=== PATIENT | female | born 1975 | race Caucasian/White ===

== ENCOUNTER 2023-06-05 21:43 | Emergency (ER) | payer OTHER ==
[~2023-06-05] VITALS: Ht 167.6 cm; Wt 64.0 kg
[2023-06-05 21:48] VITALS: BP 120/73; PULSE 88; RESP 18; TEMP 98.8; O2SAT 99
[2023-06-06] MEDS ORDERED: DOCU-138 MT (13:01)
[2023-06-06] MEDS ORDERED: FERR325T6 MT (13:01)
[2023-06-06] MEDS ORDERED: NITR-87 MT (14:24)
== END 2023-06-06 05:26 | disposition left against medical advice (07) ==
LOC: ER 21:43
DX: Z53.21 Procedure and treatment not carried out due to patient leaving prior to being seen by health care provider (principal)
CPT/HCPCS: 81025; 99281

== ENCOUNTER 2023-06-06 10:40 | Emergency (ER) | payer MEDICAID, OTHER ==
[~2023-06-06] VITALS: Ht 157.5 cm; Wt 55.0 kg
[2023-06-06 11:10] VITALS: O2SAT 100
[2023-06-06 12:25] LABS: BASOPHILS % 0.6 % (0.0-2.0); DIFFERENTIAL COMMENT 0; EOSINOPHILS % 1.6 % (0.0-5.0); HEMATOCRIT. 31.9 % (36.0-48.0); HEMOGLOBIN. 10.5 g/dL (12.0-16.0); LYMPHOCYTES % 30.4 % (20.0-50.0); MEAN CORPUSCULAR HEMOGLOBIN 25.6 pg (28.0-32.0); MEAN CORPUSCULAR HGB CONC 32.8 g/dL (31.0-37.0); MEAN PLATELET VOLUME 7.7 fl (7.4-10.4); MONOCYTES % 9.9 % (2.0-8.0); NEUTROPHILS % 57.5 % (40.0-76.0); PLATELET 319 x1000/uL (130-400); RED BLOOD CELL COUNT 4.09 mill/uL (4.2-5.4); RED CELL DISTRIBUTION WIDTH 16.1 % (11.6-14.6); WHITE BLOOD COUNT 5.1 x1000/uL (4.5-11.0)
[2023-06-06 12:48] LABS: CHLORIDE 109 mEq/L (98-107); INDEX HEMOLYSI 1 (1-3); INDEX ICTERIC 1 (1-4); INDEX LIPEMIC 1 (1-3); POTASSIUM 3.4 mEq/L (3.5-5.1); SODIUM 138 mEq/L (136-145)
[2023-06-06 12:55] LABS: ALANINE AMINOTRANSFERASE 17 IU/L (13-61); ALBUMIN 3.4 g/dL (3.4-5.0); ASPARTATE AMINOTRANSFERASE 18 IU/L (15-37); BILIRUBIN TOTAL 0.1 mg/dL (0.1-1.0); CALCIUM 8.6 mg/dL (8.5-10.1); CARBON DIOXIDE 30 mEq/L (21-32); CREATININE 0.6 mg/dL (0.6-1.3); GLUCOSE 104 mg/dL (70-105); PROTEIN TOTAL 8.1 g/dL (6.0-8.3); UREA NITROGEN BLOOD 17 mg/dL (7-21)
[2023-06-06] MEDS ORDERED: DOCU-138 MT (13:01)
[2023-06-06] MEDS ORDERED: FERR325T6 MT (13:01)
[2023-06-06 13:22] VITALS: BP 132/78; PULSE 78; RESP 16; TEMP 97.1
[2023-06-06 13:24] LABS: COLOR URINE BLOODY (YELLOW)
[2023-06-06 13:25] LABS: CLARITY URINE TURBID (CLEAR); GLUCOSE URINE TRACE (NEGATIVE); PH URINE 6.5 (4.5-8.0); PROTEIN URINE 3+ (NEGATIVE)
[2023-06-06 13:26] LABS: KETONES URINE 1+ (NEGATIVE); LEUKOCYTE ESTERASE URINE 2+ (NEGATIVE); NITRITE URINE POSITIVE (NEGATIVE); OCCULT BLOOD URINE 3+ (NEGATIVE); UROBILINOGEN URINE >8.0 E.U./dL (0.2-1.0)
[2023-06-06 13:27] LABS: BACTERIA URINE 1+; RBC URINE TNTC /hpf (0-2); SQUAMOUS EPITHELIAL CELL URINE 1+ /lpf (RARE/1+); YEAST URINE NONE SEEN
[2023-06-06] MEDS ORDERED: NITR-87 MT (14:24)
== END 2023-06-06 13:23 | disposition home or self-care (01) ==
LOC: ER 10:40
DX: N39.0 Urinary tract infection, site not specified (principal); D64.9 Anemia, unspecified
CPT/HCPCS: 36415; 80053; 81003; 81025; 85025; 99283

== ENCOUNTER 2023-10-27 13:34 | Emergency (ER) | payer MEDICAID, OTHER ==
[~2023-10-27] VITALS: Ht 165.1 cm; Wt 73.0 kg
[~2023-10-27 13:34] MED LIST: DOCU-138 MT; FERR325T6 MT; NITR-87 MT
[2023-10-27 13:41] VITALS: PULSE 95; RESP 16
[2023-10-27 13:50] VITALS: BP 149/87; O2SAT 99
[2023-10-27 18:15] VITALS: TEMP 98.2
[2023-10-27] MEDS ORDERED: ACETAMINOPHEN 500MG TABLET PO ONE (18:15)
[2023-10-27] MEDS ORDERED: TETANUS, DIPHTHERIA, PERTUSSIS VAC/PF 0.5ML (>10YR OLD) IM ONE (18:15)
== END 2023-10-27 20:24 | disposition home or self-care (01) ==
LOC: ER 13:34
DX: O9A.211 Injury, poisoning and certain other consequences of external causes complicating pregnancy, first trimester (principal); S06.0XAA Concussion with loss of consciousness status unknown, initial encounter; F19.90 Other psychoactive substance use, unspecified, uncomplicated; Z98.890 Other specified postprocedural states; Z3A.08 8 weeks gestation of pregnancy; X58.XXXA Exposure to other specified factors, initial encounter; Y93.89 Activity, other specified; Y92.89 Other specified places as the place of occurrence of the external cause; Y99.8 Other external cause status
CPT/HCPCS: 81025; 90471; 90715; 99283